=== PATIENT | male | born 1955 | race Hispanic/Latino ===

== ENCOUNTER 2017-04-09 10:10 | Inpatient (IN) | payer MEDICAID ==
[2017-04-09 10:10] VITALS: BMI 28.2
[2017-04-09] MEDS ORDERED: TDAP Vaccine 0.5 mL Syr IM ONE (10:27)
[2017-04-09] MEDS ORDERED: Lidocaine 1% Inj (20ml) ONE (10:54)
[2017-04-09 11:18] LABS: BASO % 0.5 % (0.0-2.0); EOS % 0.3 % (0.0-4.0); HEMATOCRIT 44.1 % (35.0-51.0); LYMPH # 0.8 K/uL (1.0-4.3); MEAN CELL VOLUME 95.4 fl (80.0-94.0); MEAN CORPUSCULAR HEMOGLOBIN 31.8 pg (27.0-31.0); MEAN CORPUSCULAR HGB CONC 33.3 g/dL (33.0-37.0); MEAN PLATELET VOLUME 7.7 fl (7.2-11.7); MONO # 0.5 K/uL (0.0-0.8); MONO % 6.7 % (0.0-10.0); NEUT # 6.3 K/uL (1.8-7.0); NEUT % 82.5 % (50.0-75.0); WHITE BLOOD COUNT 7.6 K/uL (4.8-10.8)
[2017-04-09] MEDS ORDERED: Multivitamin (MVI) 10 ML, Thiamine 100 MG, Folic Acid 1 MG in Sodium Chloride 0.9% 1,00... IV ONE (11:18)
[2017-04-09 11:24] LABS: ALB/GLOB RATIO 1.1 (1.0-2.1); ALCOHOL SERUM 20 mg/dl (0-10); ALKALINE PHOSPHATASE 89 U/L (38-126); ALT/SGPT 40 U/L (21-72); AST/SGOT 68 U/L (17-59); BILIRUBIN,TOTAL 0.9 mg/dl (0.2-1.3); BLOOD UREA NITROGEN 6 mg/dl (9-20); CALCIUM 9.3 mg/dL (8.4-10.2); CARBON DIOXIDE 24 mmol/L (22-30); CHLORIDE 102 mmol/L (98-107); GFR AFRICAN-AMERICAN > 60; GLUCOSE,RANDOM 95 mg/dL (75-110); SODIUM 138 mmol/l (132-148); TOTAL PROTEIN 8.6 G/DL (6.3-8.2)
[2017-04-09 11:31] LABS: PARTIAL THROMBOPLASTIN TIME 28.7 SECONDS (23.3-32.5)
--- NOTE | 2017-04-09 11:33 | ED PDOC ---
HPI: Head Injury Time Seen by Provider: 04/09/17 10:16 Chief Complaint (Nursing): Trauma Chief Complaint (Provider): Head injury History Per: Patient History/Exam Limitations: no limitations Injury Occurred (Timing): Just Before Arrival Onset/Duration Of Symptoms: Mins Patient States: Fell Striking Head Severity: Moderate Loss Of Consciousness: Yes Additional History Per: Patient Additional Complaint(s): The pt is a 61yo male, brought to the ED, C-collar in place, by EMS for evaluation s/p falling and striking his head. Pt reports he was standing along a fence when he felt dizzy and fell over, reports loss of consciousness but is unsure of duration. Reports he drinks everyday and states he goes into DT's if he does not drink - reports he had a drink last night and is going for detox tomorrow. Pt denies any headache, neck pain, chest pain, vomiting and offers no active complaints. Past Medical History Reviewed: Historical Data, Nursing Documentation, Vital Signs Vital Signs: Last Vital Signs Temp 98.4 F 04/09/17 10:16 Pulse 103 H 04/09/17 10:16 Resp 18 04/09/17 10:16 BP 150/96 H 04/09/17 10:16 Pulse Ox 97 04/09/17 10:16 - Medical History PMH: Arthritis, Back Problems, Cardia Arrhythmia, Depression, Deep Vein Thrombosis, Fractures, Gastritis, Gastrointestinal Ulcer, HTN, Hypercholesterolemia Denies: Diabetes, Hepatitis, HIV, Chronic Kidney Disease, Seizures, Sexually Transmitted Disease - Surgical History Surgical History: Appendectomy - Family History Family History: States: Unknown Family Hx, CAD - Immunization History Hx Tetanus Toxoid Vaccination: No Hx Influenza Vaccination: No Hx Pneumococcal Vaccination: No - Home Medications Home Medications: Ambulatory Orders Medication Instructions Recorded Multivitamins [Hexavitamin] 1 tab PO DAILY #30 tab 03/29/17 Pantoprazole [Protonix EC Tab] 40 mg PO DAILY #30 ect 03/29/17 QUEtiapine [Seroquel] 100 mg PO HS #30 tab 03/29/17 traZODone [Desyrel] 100 mg PO HS PRN #30 tab 03/29/17 - Allergies Allergies/Adverse Reactions: Allergies Allergy/AdvReac Type Severity Reaction Status Date / Time No Known Allergies Allergy Verified 04/09/17 16:31 Review of Systems ROS Statement: Except As Marked, All Systems Reviewed And Found Negative Cardiovascular: Negative for: Chest Pain Gastrointestinal: Negative for: Nausea, Vomiting Neurological: Positive for: Other (Loss of consciousness, head injury). Negative for: Headache Physical Exam - Reviewed Nursing Documentation Reviewed: Yes Vital Signs Reviewed: Yes - Physical Exam Appears: Positive for: Well, Non-toxic, No Acute Distress Head Exam: Positive for: NORMAL INSPECTION, NORMOCEPHALIC. Negative for: ATRAUMATIC (hematoma on forehead with superficial abrasion) Skin: Positive for: Normal Color Eye Exam: Positive for: Normal appearance ENT: Negative for: Other (2cm U-shaped laceration on nasal bridge, active bleeding noted.) Neck: Positive for: Normal (c-collar in place) Cardiovascular/Chest: Positive for: Regular Rate, Rhythm, Tachycardia Respiratory: Positive for: Normal Breath Sounds. Negative for: Respiratory Distress Gastrointestinal/Abdominal: Positive for: Normal Exam, Soft Back: Positive for: Normal Inspection Extremity: Positive for: Normal ROM (moving all extremeties, sensations intact) Neurologic/Psych: Positive for: Alert, Oriented - Laboratory Results Result Diagrams: 04/09/17 11:05 04/09/17 11:05 - ECG Interpretation Of ECG: ST @ 107. no ST-T changes. O2 Sat by Pulse Oximetry: 97 (RA) Pulse Ox Interpretation: Normal - Radiology X-Ray: Read By Radiologist X-Ray Interpretation: No Acute Disease - CT Scan/US CT head Other Rad Studies (CT/US): Radiology Report Reviewed (No intracranial hemorrhage.) CT facial bones Other Rad Studies (CT/US): Radiology Report Reviewed (Minimally displaced nasal bone fracture.) CT C-spine Other Rad Studies (CT/US): Radiology Report Reviewed (No acute fracture.) - Critical Care Total Time (In Min): 30 Medical Decision Making Medical Decision Making: Time: 1040 Impression: Head injury, alcohol intoxication Plan: * CT C-Spine * CT Head * CT Maxillofacial * CXR * IV Fluids * Ativan * Tetanus booster * Clindamycin * Banana bag * Reassess Scribe Attestation: Documented by Anaid Elaine acting as a scribe for Geraldine Block MD. Provider Attestation: All medical record entries made by the Scribe were at my direction and personally dictated by me. I have reviewed the chart and agree that the record accurately reflects my personal performance of the history, physical exam, medical decision making, and the department course for this patient. I have also personally directed, reviewed, and agree with the discharge instructions and disposition. Procedures - Time-Out Type of Procedure: Laceration repair Correct Patient (with visual ID + MR# on ID Band): Yes Correct Procedure: Yes Correct Site Marked: Yes Physician Name: Geraldine Block - Laceration/Wound Repair Nose bridge Wound Length (cm): 2 Wound's Depth, Shape: superficial, irregular (u-shaped) Wound Explored: clean Betadine Prep?: Yes Anesthesia: 1% Lidocaine Volume Anesthetic (ccs): 2 Wound Repaired With: Sutures Suture Size/Type: 6:0, proline Number of Sutures: 5 Wound Complexity: Simple Sterile Dressing Applied?: Yes Progress: Tolerated procedure well. Disposition - Clinical Impression Clinical Impression: Syncope, Alcohol withdrawal, Open nasal fracture - Patient ED Disposition Is Patient to be Admitted: Yes - Disposition Disposition Time: 16:11 Condition: STABLE - Pt Status Changed To: Hospital Disposition Of: Inpatient - Admit Certification Admit to Inpatient:: After my assessment, the patient will require hospitalization for at least two midnights. This is because of the severity of symptoms shown, intensity of services needed, and/or the medical risk in this patient being treated as an outpatient. - POA Present On Arrival: Falls Or Trauma
[2017-04-09 13:34] LABS: RBC URINE 3 /hpf (0-3); URINE BACTERIA MOD (<OCC); URINE BILIRUBIN NEGATIVE (NEGATIVE); URINE BLOOD NEGATIVE (NEGATIVE); URINE COLOR YELLOW (YELLOW); URINE GLUCOSE (UA) NEG (Normal); URINE KETONE TRACE mg/dL (NEGATIVE); URINE LEUKOCYTE ESTERASE NEG Leu/uL (Negative); URINE PROTEIN 30 mg/dL (NEGATIVE); URINE UROBILINOGEN 0.2-1.0 mg/dL (0.2-1.0); WBC URINE 2 /hpf (0-5)
--- NOTE | 2017-04-09 14:29 | CT ---
PROCEDURE: CT HEAD WITHOUT CONTRAST. HISTORY: Syncope, head injury COMPARISON: None available. TECHNIQUE: Axial computed tomography images were obtained through the head/brain without intravenous contrast. Radiation dose: Total exam DLP = 866 mGy-cm. This CT exam was performed using one or more of the following dose reduction techniques: Automated exposure control, adjustment of the mA and/or kV according to patient size, and/or use of iterative reconstruction technique. FINDINGS: HEMORRHAGE: No intracranial hemorrhage. BRAIN: No mass effect or edema. No atrophy or chronic microvascular ischemic changes. VENTRICLES: Unremarkable. No hydrocephalus. CALVARIUM: Unremarkable. PARANASAL SINUSES: Unremarkable as visualized. No significant inflammatory changes. MASTOID AIR CELLS: Unremarkable as visualized. No inflammatory changes. OTHER FINDINGS: No left frontal soft tissue hematoma. Ne. IMPRESSION: No intracranial hemorrhage.
--- NOTE | 2017-04-09 15:39 | CT ---
PROCEDURE: CT MAXILLOFACIAL BONES WITHOUT CONTRAST HISTORY: Head injury, syncope COMPARISON: None TECHNIQUE: Contiguous axial CT images of the maxillofacial bones were obtained. Coronal and sagittal reformats were generated. Radiation dose: Total exam DLP = 785 mGy-cm. This CT exam was performed using one or more of the following dose reduction techniques: Automated exposure control, adjustment of the mA and/or kV according to patient size, and/or use of iterative reconstruction technique. FINDINGS: NASAL BONES: Minimally displaced nasal bone fracture. ORBITS: Unremarkable. PARANASAL SINUSES/ MASTOIDS: Clear. MAXILLA: Unremarkable. MANDIBLE/ TEMPOROMANDIBULAR JOINTS: Unremarkable. SKULL BASE: Unremarkable. TEMPORAL BONES: Middle ears and mastoid grossly unremarkable. OTHER FINDINGS: None. IMPRESSION: Minimally displaced nasal bone fracture.
--- NOTE | 2017-04-09 15:41 | CT ---
PROCEDURE: CT Cervical Spine without contrast HISTORY: <Syncope, head injury> COMPARISON: None available. TECHNIQUE: Axial computed tomography images were obtained of the cervical spine without the use of intravenous contrast. Coronal and sagittal reformatted images were created and reviewed. Radiation dose: Total exam DLP = 486 mGy-cm. This CT exam was performed using one or more of the following dose reduction techniques: Automated exposure control, adjustment of the mA and/or kV according to patient size, and/or use of iterative reconstruction technique. FINDINGS: VERTEBRAE: No fracture. Normal alignment. No destructive bony lesion. DISCS/SPINAL CANAL/NEURAL FORAMINA: Multilevel disc space narrowing and anterior spondylosis. Discs heights are grossly preserved. PARASPINAL SOFT TISSUES: Unremarkable. OTHER FINDINGS: None. IMPRESSION: No acute fracture.
[2017-04-09] MEDS ORDERED: Clindamycin 600 MG in Sodium Chloride 0.9% 100 ML IVPB STA (15:59)
[2017-04-09] MEDS ORDERED: Sodium Chloride 0.9% 1,000 ML IV STA (16:07)
--- NOTE | 2017-04-09 16:14 | RAD ---
HISTORY: Syncope COMPARISON: No prior. FINDINGS: LUNGS: No active pulmonary disease. PLEURA: No significant pleural effusion identified, no pneumothorax apparent. CARDIOVASCULAR: Normal. OSSEOUS STRUCTURES: No significant abnormalities. VISUALIZED UPPER ABDOMEN: Normal. OTHER FINDINGS: Right Port-A-Cath in place. IMPRESSION: No active disease.
--- NOTE | 2017-04-09 18:48 | CP.PCM.HP ---
History of Present Illness - History of Present Illness History of Present Illness: Hospitalist Admission H&P (Patient was seen at 4:30 PM 04/09/17 ER Bed #8) PMD: None CODE STATUS: FULL CODE. States that he has filled a Living Will upon prior admission at [facility] but can not recall what is in it. He has designated his Sister Jeana Abarca [phone] as his Health Care Proxy CHIEF COMPLAINT: Fall 61 year old male (PMHx Alcoholism, Depression, DVT, Gastrititis, GI Ulcer, HTN, Right Shoulder Fracture) who presents via EMS status post fall. Patient states that he drank the night before on 04/08/17 but his friend with whom he lives with on [address] in [place], drank the last 2 beers. So when he woke up this morning he decided to walk to the nearest liquor store but after he made it down the steps of his residence he became lightheaded/dizzy, so he decided to sit on the brownlee of a car parked on the street in front of his residence. He does not know how long he was sitting there. He does not remember falling from the brownlee of the car but his friend witnessed it and called EMS. The next thing the patient remembers is lying on the street with EMS personal putting him in a stretcher. He did not lose bowel/bladder continence and can provide any more information than what I have just presented. Please note the remainder of this patient's history was obtained through review of prior records as patient could not provide adequate history. Currently upon FULL ROS there is NO chest pain, (+) Palpitations earlier today, NO SOB/Cough/Wheezing, NO dysphagia/odynophagia, NO abdominal pain, NO n/v/d/c, NO Burning/Pain with urination, NO lightheadedness/dizziness while laying in hospital bed but when he got up earlier in the ER to go to the bathroom he felt some (+) lightheadedness/dizziness, (+) Frontal headache, NO new changes in vision/eye pain, NO new changes in hearing/ear pain, NO paresthesias, NO edema PMHx: Alcoholism, Depression, DVT, Gastritis, GI Ulcer, HTN, Right Shoulder Fracture PSHx: Bilateral Toe #1 and #2 Amputation (could not give reason why), Left Shoulder Replacement, Appendectomy, Unspecified Gastric Surgery for unspecified reason ALL: NKDA and NO known food allergies Medications: Pantoprazole 40 mg PO 1x/day, Clonidine 0.1 mg PO 1x/day (please note that patient stated that he does not take these consistently) Social Hx: 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, 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, 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), Currently living with a friend on [address] in [place], (+) Alcohol 12 24 ounce cans of beer everyday, NO toabacco, NO illicit drugs Family Hx: Mom ( during Cardiac Bypass Surgery), Dad ( of CAD), Sister ( Unknown history) Present on Admission - Present on Admission Any Indicators Present on Admission: Yes History of DVT/PE: Yes History of Uncontrolled Diabetes: No Urinary Catheter: No Review of Systems - Review of Systems Review of Systems: See HPI Past Patient History - Infectious Disease Hx of Infectious Diseases: None - Past Medical History & Family History Past Medical History?: Yes Pertinent Family History: See HPI - Past Social History Smoking Status: Never Smoked - CARDIAC Hx Cardia Arrhythmia: Yes Hx Hypercholesterolemia: Yes Hx Hypertension: Yes - PULMONARY Hx Respiratory Disorders: No - NEUROLOGICAL Hx Seizures: No - HEENT Hx HEENT Problems: No - RENAL Hx Chronic Kidney Disease: No - ENDOCRINE/METABOLIC Hx Endocrine Disorders: No - HEMATOLOGICAL/ONCOLOGICAL Hx Human Immunodeficiency Virus (HIV): No - INTEGUMENTARY Hx Dermatological Problems: No - MUSCULOSKELETAL/RHEUMATOLOGICAL Hx Arthritis: Yes Hx Fractures: Yes - GASTROINTESTINAL Hx Gastritis: Yes - GENITOURINARY/GYNECOLOGICAL Hx Sexually Transmitted Disorders: No - PSYCHIATRIC Hx Depression: Yes - SURGICAL HISTORY Hx Appendectomy: Yes - ANESTHESIA Hx Anesthesia: Yes Hx Anesthesia Reactions: No Hx Malignant Hyperthermia: No Meds Allergies/Adverse Reactions: Allergies Allergy/AdvReac Type Severity Reaction Status Date / Time No Known Allergies Allergy Verified 04/09/17 16:31 Physical Exam - Constitutional Appears: Non-toxic Additional comments: Patient is awake, alert, and oriented x 3 However he is tremulous in his hands Not a very good historian as when asking how he came to be here, he started to tell me about he came to be admitted to [facility] last year and hard to get information concerning his medical/surgical history - Head Exam Additional comments: On mid frontal forehead there is a huge abrasion that also involves the right side of the bridge of the nose (that has 4 sutures) - Eye Exam Eye Exam: EOMI, Normal appearance Additional comments: PERRLA EOMI - ENT Exam ENT Exam: Mucous Membranes Moist, Normal External Ear Exam, Normal Oropharynx - Neck Exam Additional comments: NO cervical/supraclavicular/submandibular lymphadenopathy NO thyromegaly - Respiratory Exam Respiratory Exam: Clear to Auscultation Bilateral, NORMAL BREATHING PATTERN Additional comments: NO R/R/W CTA B/L - Cardiovascular Exam Additional comments: NS1 and NS2 NO M/R/G - GI/Abdominal Exam Additional comments: BSx4, Soft, NT, ND, NO HSM, NO guarding/rebound tenderness, Midabdominal/ periumbilical Surgical Scar - Extremities Exam Additional comments: NO edema Pulses are strong and equal Capillary Refill is 2 seconds Multiple small abrasions on the posterior aspect of the fingers bilaterally as well as the bilateral knees NO tenderness to palpation of the bilateral shoulders, elbows, hips, feet, ankles "Lye Merino" that are lua in color on the DIP pads of the Fingers #2 through #5 of the Right Hand (present for many years) [place] Deformity of the Left Hand Finger #5 (present for many years) - Neurological Exam Neurological exam: Alert, CN II-XII Intact, Oriented x3 Results - Vital Signs Recent Vital Signs: Last Vital Signs Temp 98.8 F 04/09/17 16:00 Pulse 112 H 04/09/17 16:00 Resp 19 04/09/17 16:00 BP 156/98 H 04/09/17 16:00 Pulse Ox 97 04/09/17 18:04 - Labs Result Diagrams: 04/09/17 11:05 04/09/17 11:05 - EKG Data EKG Interpreted by: Myself (Sinus Tachycardia at 107) - Imaging and Cardiology Chest x-ray Status: Report reviewed by me Assessment & Plan (1) Alcohol withdrawal Assessment and Plan: Patient received 1 Banana Bag in the ER Librium 50 mg PO Q8H 04/09/17 Librium 25 mg PO Q6H 04/10/17 Librium 25 mg PO Q8H 04/11/17 Librium 25 mg PO Q12H 04/12/17 Librium 25 mg PO 1x/day 04/13/17 Ativan 1 mg IV Q6H PRN Agitations/Signs of Withdrawl Thiamine 100 mg PO 1x/day Folic Acid 1 mg PO 1x/day MVI 1 tablet by mouth 1x/day Patient states that was scheduled to be admitted to [facility] for Alcohol Detoxification on 04/10/17 at 8 AM Status: Acute (2) Fall Assessment and Plan: This is likely related to Alcohol Withdrawl considering patient's history of Alcohol Abuse. CT Head showed NO mass effect/edema, NO hemorrhage, NO atrophy, NO microvascular changes CT Spine Cervical showed NO acute fracture CT Maxillofacial showed minimally displaced nasal bone fracture F/U STAT X Rays of the bilateral hands, wrists, and knees. Bacitracin Topical TID 3x/day to the abrasions on the frontal forehead, right nasal bridge, bilateral hand posterior fingers, bilateral anterior knees 4 sutures placed by ER on the right nasal bridge abrasion Patient received Clindamycin 600 mg IV x 1 dose in the ER as well as TDAP Status: Acute (3) Urinary tract infection Assessment and Plan: UA shows Moderate Bacteria and (+) Ketones F/U STAT Urine Culture Status: Suspected (4) HTN (hypertension) Assessment and Plan: Holding the Clonidine 0.1 mg which the patient states he will take if he feels his heart beating fast. Lisinopril 10 mg PO 1x/day was started as he was on this while at [facility] admission in May 2016. Status: Chronic (5) Prophylactic measure Assessment and Plan: Heparin 5,000 Units SC Q8H Protonix 40 mg PO 1x/day [facility] Decaf 2 gm Na Diet F/U Labs 04/10/17: CMP, CBC with diff, Vitamin B12, Folate, TSH, T4 Status: Acute
[2017-04-09] MEDS: Pantoprazole 40 mg EC Tab PO SCH (22:05)
[2017-04-10 06:47] LABS: BASO % 0.7 % (0.0-2.0); HEMATOCRIT 37.9 % (35.0-51.0); LYMPH # 1.1 K/uL (1.0-4.3); LYMPH % 29.7 % (20.0-40.0); MEAN CELL VOLUME 95.8 fl (80.0-94.0); MEAN CORPUSCULAR HEMOGLOBIN 32.2 pg (27.0-31.0); MEAN CORPUSCULAR HGB CONC 33.6 g/dL (33.0-37.0); MEAN PLATELET VOLUME 8.3 fl (7.2-11.7); MONO # 0.5 K/uL (0.0-0.8); NEUT # 2.2 K/uL (1.8-7.0); NEUT % 56.6 % (50.0-75.0); NRBC % 0.2 % (0.0-0.0); RED CELL DISTRIBUTION WIDTH 13.7 % (11.5-14.5); WHITE BLOOD COUNT 3.9 K/uL (4.8-10.8)
[2017-04-10 07:00] LABS: ALB/GLOB RATIO 1.1 (1.0-2.1); ALKALINE PHOSPHATASE 71 U/L (38-126); ALT/SGPT 32 U/L (21-72); AST/SGOT 45 U/L (17-59); BILIRUBIN,TOTAL 1.6 mg/dl (0.2-1.3); BLOOD UREA NITROGEN 8 mg/dl (9-20); CALCIUM 8.6 mg/dL (8.4-10.2); CARBON DIOXIDE 25 mmol/L (22-30); CHLORIDE 103 mmol/L (98-107); GFR AFRICAN-AMERICAN > 60; GLUCOSE,RANDOM 90 mg/dL (75-110); POTASSIUM 3.8 MMOL/L (3.6-5.0); SODIUM 137 mmol/l (132-148); TOTAL PROTEIN 6.9 G/DL (6.3-8.2)
[2017-04-10 07:24] LABS: THYROID STIMULATING HORMONE 1.89 mIU/ML (0.46-4.68)
--- NOTE | 2017-04-10 08:48 | CARD ---
APPROVED REPORT EKG Measurement Heart [id number] CT [id number] <Conclusion> Sinus tachycardia Otherwise normal ECG
[2017-04-10] MEDS: Pantoprazole 40 mg EC Tab PO SCH (09:07)
[2017-04-10] MEDS: Multivitamin With Minerals Tab PO SCH (09:07)
[2017-04-10] MEDS: Bacitracin 500 Units/gm Oint Foilpak UD TOP SCH ×3 (09:07→16:25)
[2017-04-10 13:33] LABS: FOLATE 11.9 ng/mL
[2017-04-10] MEDS ORDERED: Multivitamin (MVI) 10 ML, Thiamine 100 MG, Folic Acid 1 MG in Sodium Chloride 0.9% 1,00... IV ONE (14:37)
--- NOTE | 2017-04-10 14:38 | CP.PCM.PN ---
Subjective - Date & Time of Evaluation Date of Evaluation: 04/10/17 Time of Evaluation: 14:20 - Subjective Subjective: Hospitalist Progress Note (Patient was seen and examined at 2:20 PM 04/10/17 [id number]) 61 year old male who was admitted on 04/09/17 S/P fall and Alcohol Withdrawl. ROS Episode of diarrhea Currently upon FULL ROS there is NO chest pain, NO palpitations, NO SOB/Cough/ Wheezing, NO dysphagia/odynophagia, NO abdominal pain, NO n/v/c, NO Burning/ Pain with urination, NO lightheadedness/dizziness today, (+) Frontal headache, NO new changes in vision/eye pain, NO new changes in hearing/ear pain, NO paresthesias, NO edema Physical Exam - Constitutional Appears: Non-toxic Additional comments: Patient is awake, alert, and oriented x 3 However he is tremulous in his hands Not a very good historian as when asking how he came to be here, he started to tell me about he came to be admitted to [facility] last year and hard to get information concerning his medical/surgical history - Head Exam Additional comments: On mid frontal forehead there is a huge abrasion that also involves the right side of the bridge of the nose (that has 4 sutures) - Eye Exam Eye Exam: EOMI, Normal appearance Additional comments: PERRLA EOMI - ENT Exam ENT Exam: Mucous Membranes Moist, Normal External Ear Exam, Normal Oropharynx - Neck Exam Additional comments: NO cervical/supraclavicular/submandibular lymphadenopathy NO thyromegaly - Respiratory Exam Respiratory Exam: Clear to Auscultation Bilateral, NORMAL BREATHING PATTERN Additional comments: NO R/R/W CTA B/L - Cardiovascular Exam Additional comments: NS1 and NS2 NO M/R/G - GI/Abdominal Exam Additional comments: BSx4, Soft, NT, ND, NO HSM, NO guarding/rebound tenderness, Midabdominal/ periumbilical Surgical Scar - Extremities Exam Additional comments: NO edema Pulses are strong and equal Capillary Refill is 2 seconds Multiple small abrasions on the posterior aspect of the fingers bilaterally as well as the bilateral knees NO tenderness to palpation of the bilateral shoulders, elbows, hips, feet, ankles "Lye Merino" that are lua in color on the DIP pads of the Fingers #2 through #5 of the Right Hand (present for many years) [place] Deformity of the Left Hand Finger #5 (present for many years) Bilateral Great Toe and partial 2nd Toe Amputations - Neurological Exam Neurological exam: Alert, CN II-XII Intact, Oriented x3 Assessment & Plan (1) Alcohol withdrawal Assessment and Plan: Patient still tremulous and unsteady on feet, but the tremulousness has improved Librium 50 mg PO Q8H 04/09/17 Librium 25 mg PO Q6H 04/10/17 Librium 25 mg PO Q8H 04/11/17 Librium 25 mg PO Q12H 04/12/17 Librium 25 mg PO 1x/day 04/13/17 Ativan 1 mg IV Q6H PRN Agitations/Signs of Withdrawl Thiamine 100 mg PO 1x/day Folic Acid 1 mg PO 1x/day MVI 1 tablet by mouth 1x/day Banana Bag x 1 ordered for 04/10/17 Patient states that was scheduled to be admitted to [facility] for Alcohol Detoxification on 04/10/17 at 8 AM Status: Acute (2) Fall Assessment and Plan: This is likely related to Alcohol Withdrawl considering patient's history of Alcohol Abuse. F/U PT evaluation and treatment that was ordered 04/10/17: patient states that he was told in the past ([facility] admission) to use a walker but states that he does not use one. CT Head showed NO mass effect/edema, NO hemorrhage, NO atrophy, NO microvascular changes CT Spine Cervical showed NO acute fracture CT Maxillofacial showed minimally displaced nasal bone fracture Bilateral Knee X Rays shows mild tricompartmental osteoarthritis, NO fracture Bilateral Wrist X Rays shows NO acute findings Bilateral Hands shows degenerative changes at the 1st carpometacarpal joint Bacitracin Topical TID 3x/day to the abrasions on the frontal forehead, right nasal bridge, bilateral hand posterior fingers, bilateral anterior knees 4 sutures placed by ER on the right nasal bridge abrasion Patient received Clindamycin 600 mg IV x 1 dose in the ER as well as TDAP Status: Acute (3) Urinary tract infection Assessment and Plan: UA shows Moderate Bacteria and (+) Ketones F/U STAT Urine Culture that was ordered 04/09/17 at the time of admission Status: Suspected (4) HTN (hypertension) Assessment and Plan: Holding the Clonidine 0.1 mg which the patient states he will take if he feels his heart beating fast. Lisinopril 10 mg PO 1x/day was started as he was on this while at [facility] admission in May 2016. Blood pressure is controlled on the Lisinopril Status: Chronic (5) Prophylactic measure Assessment and Plan: Heparin 5,000 Units SC Q8H Protonix 40 mg PO 1x/day Heart Health Decaf 2 gm Na Diet Objective - Vital Signs/Intake and Output Vital Signs (last 24 hours): Temp Pulse Resp BP Pulse Ox 98 F 94 H 18 121/73 97 04/10/17 12:08 04/10/17 12:08 04/10/17 12:08 04/10/17 12:08 04/10/17 12:08 - Medications Medications: Current Medications Bacitracin (Bacitracin) 1 ea TOP TID [facility] Last Admin: 04/10/17 13:18 Dose: 1 ea Chlordiazepoxide (Librium) 25 mg PO 0200,0800,1400,2000 [facility] Last Admin: 04/10/17 13:18 Dose: 25 mg Chlordiazepoxide (Librium) 25 mg PO Q8H [facility] Stop: 04/12/17 08:00 Chlordiazepoxide (Librium) 25 mg PO Q12H [facility] Stop: 04/13/17 08:00 Chlordiazepoxide (Librium) 25 mg PO ONCE ONE Stop: 04/13/17 20:01 Folic Acid (Folic Acid) 1 mg PO DAILY [facility] Last Admin: 04/10/17 09:07 Dose: 1 mg Heparin Sodium (Porcine) (Heparin) 5,000 units SC Q8 [facility] PRN Reason: Protocol Last Admin: 04/10/17 09:07 Dose: 5,000 units Lisinopril (Zestril) 10 mg PO DAILY [facility] Last Admin: 04/10/17 09:08 Dose: 10 mg Lorazepam (Ativan) 1 mg IVP Q6 PRN PRN Reason: Symptoms of alcohol withdrawl Multivitamins/Minerals (Therapeutic-M Tab) 1 tab PO DAILY [facility] Last Admin: 04/10/17 09:07 Dose: 1 tab Pantoprazole Sodium (Protonix Ec Tab) 40 mg PO DAILY [facility] Last Admin: 04/10/17 09:07 Dose: 40 mg Thiamine HCl (Vitamin B1 Tab) 100 mg PO DAILY [facility] Last Admin: 04/10/17 09:08 Dose: 100 mg - Labs Labs: 04/10/17 05:10 04/10/17 05:10 PT 12.6 SECONDS (9.6-11.2) H 04/09/17 11:05 INR 1.21 (0.92-1.08) H 04/09/17 11:05 APTT 28.7 SECONDS (23.3-32.5) 04/09/17 11:05 Assessment and Plan (1) Alcohol withdrawal Status: Acute (2) Fall Status: Acute (3) Urinary tract infection Status: Suspected (4) HTN (hypertension) Status: Chronic (5) Prophylactic measure Status: Acute
--- NOTE | 2017-04-10 16:30 | RAD ---
PROCEDURE: Bilateral Wrists Radiographs. HISTORY: S/P Fall COMPARISON: None. FINDINGS: BONES: Right Carpal Bones: Normal. No fracture or degenerative changes. Left Carpal Bones: Normal. No fracture or degenerative changes. Right Distal Radius and Ulna: No fracture or degenerative changes. Left Distal Radius and Ulna: No fracture or degenerative changes. JOINT SPACES: Right Wrist: Normal. No degenerative changes. Left Wrist: Normal. No degenerative changes. SOFT TISSUES: Right Wrist: Normal. Left Wrist: Normal. OTHER FINDINGS: None. IMPRESSION: No acute findings related to/accounting for the clinical presentation.
--- NOTE | 2017-04-10 16:31 | RAD ---
HISTORY: S/P Fall COMPARISON: No prior FINDINGS: BONES: Normal. No fracture. JOINTS: Degenerative changes at the 1st carpometacarpal joint bilaterally. SOFT TISSUE: Normal. OTHER FINDINGS: None . IMPRESSION: Degenerative changes at the 1st carpometacarpal joint bilaterally.
--- NOTE | 2017-04-10 16:36 | RAD ---
HISTORY: S/P Fall COMPARISON: No prior FINDINGS: BONES: Normal. No fracture. Osteopenia. JOINTS: Tricompartmental osteoarthritis with marginal spur formation. SOFT TISSUE: Normal. OTHER FINDINGS: None . IMPRESSION: Mild tricompartmental osteoarthritis. No acute fracture.
[2017-04-11 07:15] LABS: BASO % 0.6 % (0.0-2.0); EOS # 0.1 K/uL (0.0-0.7); EOS % 1.8 % (0.0-4.0); HEMATOCRIT 36.7 % (35.0-51.0); LYMPH % 30.3 % (20.0-40.0); MEAN CELL VOLUME 95.2 fl (80.0-94.0); MEAN CORPUSCULAR HGB CONC 33.6 g/dL (33.0-37.0); MEAN PLATELET VOLUME 8.4 fl (7.2-11.7); MONO # 0.4 K/uL (0.0-0.8); MONO % 11.7 % (0.0-10.0); NEUT # 1.8 K/uL (1.8-7.0); NEUT % 55.6 % (50.0-75.0); NRBC % 0.1 % (0.0-0.0); RED CELL DISTRIBUTION WIDTH 13.5 % (11.5-14.5); WHITE BLOOD COUNT 3.2 K/uL (4.8-10.8)
[2017-04-11 07:27] LABS: ALB/GLOB RATIO 1.1 (1.0-2.1); ALKALINE PHOSPHATASE 80 U/L (38-126); ALT/SGPT 35 U/L (21-72); AST/SGOT 45 U/L (17-59); BILIRUBIN,TOTAL 1.1 mg/dl (0.2-1.3); BLOOD UREA NITROGEN 7 mg/dl (9-20); CALCIUM 8.7 mg/dL (8.4-10.2); CARBON DIOXIDE 26 mmol/L (22-30); CHLORIDE 105 mmol/L (98-107); GFR AFRICAN-AMERICAN > 60; GLUCOSE,RANDOM 100 mg/dL (75-110); SODIUM 139 mmol/l (132-148); TOTAL PROTEIN 6.7 G/DL (6.3-8.2)
[2017-04-11] MEDS: Bacitracin 500 Units/gm Oint Foilpak UD TOP SCH ×3 (09:06→16:49)
[2017-04-11] MEDS: Pantoprazole 40 mg EC Tab PO SCH (09:10)
[2017-04-11] MEDS: Multivitamin With Minerals Tab PO SCH (09:11)
--- NOTE | 2017-04-11 14:42 | CP.PCM.PN ---
Subjective - Date & Time of Evaluation Date of Evaluation: 04/11/17 Time of Evaluation: 10:30 - Subjective Subjective: Pt seen and examined. Pt still tremelous but otherwise denied any complaint. Objective - Vital Signs/Intake and Output Vital Signs (last 24 hours): Temp Pulse Resp BP Pulse Ox 97.8 F 85 18 156/88 H 98 04/11/17 12:02 04/11/17 12:02 04/11/17 12:02 04/11/17 12:02 04/11/17 12:02 - Medications Medications: Current Medications Bacitracin (Bacitracin) 1 ea TOP TID COUNT INCLUDES THE [facility] Last Admin: 04/11/17 13:53 Dose: 1 ea Chlordiazepoxide (Librium) 25 mg PO 0200,0800,1400,2000 COUNT INCLUDES THE [facility] Last Admin: 04/11/17 13:53 Dose: 25 mg Chlordiazepoxide (Librium) 25 mg PO Q8H ELDA Stop: 04/12/17 08:00 Chlordiazepoxide (Librium) 25 mg PO Q12H ELDA Stop: 04/13/17 08:00 Chlordiazepoxide (Librium) 25 mg PO ONCE ONE Stop: 04/13/17 20:01 Folic Acid (Folic Acid) 1 mg PO DAILY COUNT INCLUDES [facility] Last Admin: 04/11/17 09:09 Dose: 1 mg Heparin Sodium (Porcine) (Heparin) 5,000 units SC Q8 ELDA PRN Reason: Protocol Last Admin: 04/11/17 09:09 Dose: 5,000 units Lisinopril (Zestril) 10 mg PO DAILY COUNT [facility]CLUDES [facility] Last Admin: 04/11/17 09:12 Dose: 10 mg Lorazepam (Ativan) 1 mg IVP Q6 PRN PRN Reason: Symptoms of alcohol withdrawl Multivitamins/Minerals (Therapeutic-M Tab) 1 tab PO DAILY COUNT INCLUDES [facility] Last Admin: 04/11/17 09:11 Dose: 1 tab Pantoprazole Sodium (Protonix Ec Tab) 40 mg PO DAILY COUNT [facility]CLUDES [facility] Last Admin: 04/11/17 09:10 Dose: 40 mg Thiamine HCl (Vitamin B1 Tab) 100 mg PO DAILY COUNT [facility]CLUDES [facility] Last Admin: 04/11/17 09:10 Dose: 100 mg - Labs Labs: 04/11/17 05:20 04/11/17 05:20 PT 12.6 SECONDS (9.6-11.2) H 04/09/17 11:05 INR 1.21 (0.92-1.08) H 04/09/17 11:05 APTT 28.7 SECONDS (23.3-32.5) 04/09/17 11:05 - Constitutional Appears: No Acute Distress, Other (tremelous) - Head Exam Head Exam: ATRAUMATIC - Eye Exam Eye Exam: absent: Scleral icterus - ENT Exam ENT Exam: Mucous Membranes Moist - Neck Exam Neck Exam: absent: Meningismus - Respiratory Exam Respiratory Exam: absent: Rhonchi, Wheezes, Respiratory Distress - Cardiovascular Exam Cardiovascular Exam: REGULAR RHYTHM, +S1, +S2 - GI/Abdominal Exam GI & Abdominal Exam: Soft. absent: Tenderness - Rectal Exam Rectal Exam: Deferred - Neurological Exam Neurological Exam: Alert, Oriented x3 - Psychiatric Exam Psychiatric exam: Normal Affect - Skin Skin Exam: Dry, Intact Assessment and Plan (1) Alcohol withdrawal Status: Acute (2) Fall Status: Acute (3) Urinary tract infection Status: Suspected (4) HTN (hypertension) Status: Chronic (5) DVT prophylaxis Status: Acute - Assessment and Plan (Free Text) Assessment: 61 yo male with history of Alcoholism, Depression, HTN, DVT and Gastritis admitted because of fall and instability when ambulating. Patient also appeared tremulous. 1. Alcohol Withdrawal Ativan 1mg IV q 6hrs prn for chesr pain continue Librium, Thiamine and Folic Acid 2. Fall secondary to alcohol withdrawal sustained nasal bone fracture 3. UTI ruled out no growth in urine cullture 4. HTN BP uncontrolled secondary to alcohol witdrawal Lisinopril 10mg PO daily 5. DVT prophylaxis Heparin 5000 units SC q 8hrs
[2017-04-12] MEDS: Bacitracin 500 Units/gm Oint Foilpak UD TOP SCH ×3 (09:32→16:48)
[2017-04-12] MEDS: Pantoprazole 40 mg EC Tab PO SCH (09:33)
[2017-04-12] MEDS: Multivitamin With Minerals Tab PO SCH (09:33)
--- NOTE | 2017-04-12 13:27 | CP.PCM.PN ---
Subjective - Date & Time of Evaluation Date of Evaluation: 04/12/17 Time of Evaluation: 10:30 - Subjective Subjective: Pt seen and examined. Hand were still shaking. He also complained of instability when ambulating. Objective - Vital Signs/Intake and Output Vital Signs (last 24 hours): Temp Pulse Resp BP Pulse Ox 98.6 F 86 18 156/83 H 98 04/12/17 12:02 04/12/17 12:02 04/12/17 12:02 04/12/17 12:02 04/12/17 12:02 - Medications Medications: Current Medications Bacitracin (Bacitracin) 1 ea TOP TID [facility] Last Admin: 04/12/17 09:32 Dose: 1 ea Chlordiazepoxide (Librium) 25 mg PO Q12H ELDA Stop: 04/13/17 08:00 Chlordiazepoxide (Librium) 25 mg PO ONCE ONE Stop: 04/13/17 20:01 Chlordiazepoxide (Librium) 25 mg PO Q8@0600,1400,2200 [facility] Last Admin: 04/12/17 06:18 Dose: 25 mg Folic Acid (Folic Acid) 1 mg PO DAILY [facility] Last Admin: 04/12/17 09:33 Dose: 1 mg Heparin Sodium (Porcine) (Heparin) 5,000 units SC Q8 ELDA PRN Reason: Protocol Last Admin: 04/12/17 09:34 Dose: 5,000 units Lisinopril (Zestril) 10 mg PO DAILY [facility] Last Admin: 04/12/17 09:33 Dose: 10 mg Lorazepam (Ativan) 1 mg IVP Q6 PRN PRN Reason: Symptoms of alcohol withdrawl Multivitamins/Minerals (Therapeutic-M Tab) 1 tab PO DAILY [facility] Last Admin: 04/12/17 09:33 Dose: 1 tab Pantoprazole Sodium (Protonix Ec Tab) 40 mg PO DAILY [facility] Last Admin: 04/12/17 09:33 Dose: 40 mg Thiamine HCl (Vitamin B1 Tab) 100 mg PO DAILY [facility] Last Admin: 04/12/17 09:32 Dose: 100 mg - Labs Labs: 04/11/17 05:20 04/11/17 05:20 PT 12.6 SECONDS (9.6-11.2) H 04/09/17 11:05 INR 1.21 (0.92-1.08) H 04/09/17 11:05 APTT 28.7 SECONDS (23.3-32.5) 04/09/17 11:05 - Constitutional Appears: No Acute Distress - Head Exam Head Exam: ATRAUMATIC - Eye Exam Eye Exam: absent: Scleral icterus - ENT Exam ENT Exam: Mucous Membranes Moist - Neck Exam Neck Exam: absent: Meningismus - Respiratory Exam Respiratory Exam: absent: Rhonchi, Wheezes, Respiratory Distress - Cardiovascular Exam Cardiovascular Exam: REGULAR RHYTHM, +S1, +S2 - GI/Abdominal Exam GI & Abdominal Exam: Soft. absent: Tenderness - Rectal Exam Rectal Exam: Deferred - Neurological Exam Neurological Exam: Abnormal Gait (unstable gait), Alert, Oriented x3 - Psychiatric Exam Psychiatric exam: Normal Affect - Skin Skin Exam: Abrasion (multiple healing abrasions on face) Assessment and Plan (1) Alcohol withdrawal Status: Acute (2) Fall Status: Acute (3) Urinary tract infection Status: Ruled-out (4) HTN (hypertension) Status: Chronic (5) DVT prophylaxis Status: Acute - Assessment and Plan (Free Text) Assessment: 61 yo male with history of Alcoholism, Depression, HTN, DVT and Gastritis admitted because of fall and gait instability. Patient was also tremulous. 1. Alcohol Withdrawal extended hands less tremulous on Ativan prn for agitation continue Librium, Thiamine and Folic Acid 2. Fall secondary to gait instability specially when turning as PT sustained nasal bone fracture 3. HTN BP uncontrolled secondary to alcohol witdrawal will increase Lisinopril 20mg PO daily 4. DVT prophylaxis Heparin 5000 units SC q 8hrs
--- NOTE | 2017-04-12 13:31 | CP.PCM.CON ---
History of Present Illness - History of Present Illness History of Present Illness: Psychiatry consult called for evaluation of alcohol abuse and depression Patient is a poor historian, therefore history was obtained from the chart. CC: "Yeah, I'm depressed sometimes, but I would never kill myself." HPI: 61 year old male (PMHx Alcoholism, Depression, DVT, Gastrititis, GI Ulcer, HTN, Right Shoulder Fracture) who presented via EMS status post fall. Patient reports that he drinks "too much", but would not quantify the exact amount. Patient has a known history of severe alcohol abuse. He reports feelings depressed and anxious, but also reports that he does not have any long periods of sobriety. No psychosis/paranoia. Sleep/appetite are disturbed due to chronic ETOH abuse. He is not interested in inpatient psychiatric admission at this time. Sp[facility] Diver discussed starting an antidepressant for his anxiety and depression and he stated that he would consider it. History from the chart: "Patient states that he drank the night before on but his friend with whom he lives with on [address] in [place], drank the last 2 beers. So when he woke up this morning he decided to walk to the nearest liquor store but after he made it down the steps of his residence he became lightheaded/dizzy, so he decided to sit on the brownlee of a car parked on the street in front of his residence. He does not know how long he was sitting there. He does not remember falling from the brownlee of the car but his friend witnessed it and called EMS. The next thing the patient remembers is lying on the street with EMS personal putting him in a stretcher. He did not lose bowel/ bladder continence and can provide any more information than what I have just presented. Please note the remainder of this patient's history was obtained through review of prior records as patient could not provide adequate history." PPHx: H/o multiple alcohol detoxes. H/o tx w/ Paxil and Prozac which he believes were not helpful, but he also was not compliant with medications. 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 Impression: 61 yo male w/ h/o chronic and severe Alcohol Use Disorder, w/ reported symptoms of anxiety and depression, r/o substance induced mood and/or anxiety disorder. -Patient does not need psychiatric admission -Can start Zoloft 50 mg PO Daily if the patient is agreeable; he would benefit from outpatient psychiatric follow-up -Patient has capacity to make medical decisions at this time -Continue to taper Librium as per ETOH withdrawal protocol -Call w/ further questions, Dr. Clark [phone] Past Patient History - Infectious Disease Hx of Infectious Diseases: None - Past Medical History & Family History Past Medical History?: Yes - Past Social History Smoking Status: Never Smoked - CARDIAC Hx Cardia Arrhythmia: Yes Hx Hypercholesterolemia: Yes Hx Hypertension: Yes - PULMONARY Hx Respiratory Disorders: No - NEUROLOGICAL Hx Seizures: No - HEENT Hx HEENT Problems: No - RENAL Hx Chronic Kidney Disease: No - ENDOCRINE/METABOLIC Hx Endocrine Disorders: No - HEMATOLOGICAL/ONCOLOGICAL Hx Human Immunodeficiency Virus (HIV): No - INTEGUMENTARY Hx Dermatological Problems: No - MUSCULOSKELETAL/RHEUMATOLOGICAL Hx Arthritis: Yes Hx Falls: Yes Hx Fractures: Yes - GASTROINTESTINAL Hx Gastritis: Yes - GENITOURINARY/GYNECOLOGICAL Hx Sexually Transmitted Disorders: No - PSYCHIATRIC Hx Depression: Yes Hx Substance Use: No - SURGICAL HISTORY Hx Appendectomy: Yes - ANESTHESIA Hx Anesthesia: Yes Hx Anesthesia Reactions: No Hx Malignant Hyperthermia: No Meds Allergies/Adverse Reactions: Allergies Allergy/AdvReac Type Severity Reaction Status Date / Time No Known Allergies Allergy Verified 04/09/17 16:31 - Medications Medications: Current Medications Bacitracin (Bacitracin) 1 ea TOP TID [facility] Last Admin: 04/12/17 09:32 Dose: 1 ea Chlordiazepoxide (Librium) 25 mg PO Q12H ELDA Stop: 04/13/17 08:00 Chlordiazepoxide (Librium) 25 mg PO ONCE ONE Stop: 04/13/17 20:01 Chlordiazepoxide (Librium) 25 mg PO Q8@0600,1400,2200 [facility] Last Admin: 04/12/17 06:18 Dose: 25 mg Folic Acid (Folic Acid) 1 mg PO DAILY [facility] Last Admin: 04/12/17 09:33 Dose: 1 mg Heparin Sodium (Porcine) (Heparin) 5,000 units SC Q8 [facility] PRN Reason: Protocol Last Admin: 04/12/17 09:34 Dose: 5,000 units Lisinopril (Zestril) 10 mg PO DAILY [facility] Last Admin: 04/12/17 09:33 Dose: 10 mg Lorazepam (Ativan) 1 mg IVP Q6 PRN PRN Reason: Symptoms of alcohol withdrawl Multivitamins/Minerals (Therapeutic-M Tab) 1 tab PO DAILY [facility] Last Admin: 04/12/17 09:33 Dose: 1 tab Pantoprazole Sodium (Protonix Ec Tab) 40 mg PO DAILY [facility] Last Admin: 04/12/17 09:33 Dose: 40 mg Thiamine HCl (Vitamin B1 Tab) 100 mg PO DAILY [facility] Last Admin: 04/12/17 09:32 Dose: 100 mg Results - Vital Signs Recent Vital Signs: Last Vital Signs Temp 98.6 F 04/12/17 12:02 Pulse 86 04/12/17 12:02 Resp 18 04/12/17 12:02 BP 156/83 H 04/12/17 12:02 Pulse Ox 98 04/12/17 12:02 - Labs Result Diagrams: 04/11/17 05:20 04/11/17 05:20
[2017-04-12 15:58] VITALS: RESP 20
--- NOTE | 2017-04-12 16:43 | CP.PCM.DIS ---
Provider - Provider Date of Admission: 04/09/17 16:08 Attending physician: Arturo Ramirez MD Consults: Dr Clark Time Spent in preparation of Discharge (in minutes): 30 Diagnosis - Discharge Diagnosis (1) Alcohol withdrawal Status: Acute Comment: continue tapering dose of Librium. continue Thiamine, Folic Acid. Ativan 1mg IV q 4hrs for agitation (2) Fall Status: Acute Comment: continue physical therapy and OT (3) HTN (hypertension) Status: Chronic Comment: BP elevated. increase dose of Lisinopril to 20mg PO daily (4) DVT prophylaxis Status: Acute Comment: Heparin 5000 units SC q 8hrs Hospital Course - Lab Results Lab Results: Most Recent Lab Values WBC 3.2 K/uL (4.8-10.8) L 04/11/17 05:20 RBC 3.86 Mil/uL (4.40-5.90) L 04/11/17 05:20 Hgb 12.3 g/dL (12.0-18.0) 04/11/17 05:20 Hct 36.7 % (35.0-51.0) 04/11/17 05:20 MCV 95.2 fl (80.0-94.0) H 04/11/17 05:20 MCH 32.0 pg (27.0-31.0) H 04/11/17 05:20 MCHC 33.6 g/dL (33.0-37.0) 04/11/17 05:20 RDW 13.5 % (11.5-14.5) 04/11/17 05:20 Plt Count 121 K/uL (130-400) L 04/11/17 05:20 MPV 8.4 fl (7.2-11.7) 04/11/17 05:20 Neut % (Auto) 55.6 % (50.0-75.0) 04/11/17 05:20 Lymph % (Auto) 30.3 % (20.0-40.0) 04/11/17 05:20 Stephens % (Auto) 11.7 % (0.0-10.0) H 04/11/17 05:20 Eos % (Auto) 1.8 % (0.0-4.0) 04/11/17 05:20 Baso % (Auto) 0.6 % (0.0-2.0) 04/11/17 05:20 Neut # 1.8 K/uL (1.8-7.0) 04/11/17 05:20 Lymph # 1.0 K/uL (1.0-4.3) 04/11/17 05:20 Stephens # 0.4 K/uL (0.0-0.8) 04/11/17 05:20 Eos # 0.1 K/uL (0.0-0.7) 04/11/17 05:20 Baso # 0.0 K/uL (0.0-0.2) 04/11/17 05:20 PT 12.6 SECONDS (9.6-11.2) H 04/09/17 11:05 INR 1.21 (0.92-1.08) H 04/09/17 11:05 APTT 28.7 SECONDS (23.3-32.5) 04/09/17 11:05 Sodium 139 mmol/l (132-148) 04/11/17 05:20 Potassium 4.0 MMOL/L (3.6-5.0) 04/11/17 05:20 Chloride 105 mmol/L (98-107) 04/11/17 05:20 Carbon Dioxide 26 mmol/L (22-30) 04/11/17 05:20 Anion Gap 12 (10-20) 04/11/17 05:20 BUN 7 mg/dl (9-20) L 04/11/17 05:20 Creatinine 0.7 mg/dL (0.8-1.5) L 04/11/17 05:20 Est GFR ( Amer) > 60 04/11/17 05:20 Est GFR (Non-Af Amer) > 60 04/11/17 05:20 POC Glucose (mg/dL) 95 mg/dL (65-110) 04/09/17 10:22 Random Glucose 100 mg/dL (75-110) 04/11/17 05:20 Calcium 8.7 mg/dL (8.4-10.2) 04/11/17 05:20 Total Bilirubin 1.1 mg/dl (0.2-1.3) 04/11/17 05:20 AST 45 U/L (17-59) 04/11/17 05:20 ALT 35 U/L (21-72) 04/11/17 05:20 Alkaline Phosphatase 80 U/L (38-126) 04/11/17 05:20 Troponin I < 0.0120 ng/mL (0.00-0.120) 04/09/17 11:05 Total Protein 6.7 G/DL (6.3-8.2) 04/11/17 05:20 Albumin 3.5 g/dL (3.5-5.0) 04/11/17 05:20 Globulin 3.2 gm/dL (2.2-3.9) 04/11/17 05:20 Albumin/Globulin Ratio 1.1 (1.0-2.1) 04/11/17 05:20 Vitamin B12 502 pg/mL (239-931) 04/10/17 05:10 Folate 11.9 ng/mL 04/10/17 05:10 Thyroxine (T4) 7.16 ug/dl (5.5-11.0) 04/10/17 05:10 TSH 3rd Generation 1.89 mIU/ML (0.46-4.68) 04/10/17 05:10 Urine Color Yellow (YELLOW) 04/09/17 13:25 Urine Clarity Slighty-cloudy (Clear) 04/09/17 13:25 Urine pH 6.0 (5.0-8.0) 04/09/17 13:25 Ur Specific [place] 1.016 (1.003-1.030) 04/09/17 13:25 Urine Protein 30 mg/dL (NEGATIVE) 04/09/17 13:25 Urine Glucose (UA) Neg mg/dL (Normal) 04/09/17 13:25 Urine Ketones Trace mg/dL (NEGATIVE) 04/09/17 13:25 Urine Blood Negative (NEGATIVE) 04/09/17 13:25 Urine Nitrate Negative (NEGATIVE) 04/09/17 13:25 Urine Bilirubin Negative (NEGATIVE) 04/09/17 13:25 Urine Urobilinogen 0.2-1.0 mg/dL (0.2-1.0) 04/09/17 13:25 Ur Leukocyte Esterase Neg [place]/uL (Negative) 04/09/17 13:25 Urine RBC (Auto) 3 /hpf (0-3) 04/09/17 13:25 Urine Microscopic WBC 2 /hpf (0-5) 04/09/17 13:25 Ur Squamous Epith Cells 1 /hpf (0-5) 04/09/17 13:25 Urine Bacteria Mod (<OCC) H 04/09/17 13:25 Hyaline Casts 0-2 /hpf (0-2) 04/09/17 13:25 Urine Opiates Screen Negative (NEGATIVE) 04/09/17 13:25 Urine Methadone Screen Negative (NEGATIVE) 04/09/17 13:25 Ur Barbiturates Screen Negative (NEGATIVE) 04/09/17 13:25 Ur Phencyclidine Scrn Negative (NEGATIVE) 04/09/17 13:25 Ur Amphetamines Screen Negative (NEGATIVE) 04/09/17 13:25 U Benzodiazepines Scrn Negative (NEGATIVE) 04/09/17 13:25 U Oth Cocaine Metabols Negative (NEGATIVE) 04/09/17 13:25 U Cannabinoids Screen Negative (NEGATIVE) 04/09/17 13:25 Alcohol, Quantitative 20 mg/dl (0-10) H 04/09/17 11:05 - Hospital Course Hospital Course: 61 yo male with history of Alcoholism, Depression, HTN, DVT and Gastritis admitted because of fall and gait instability. Pt sustained nasal bone fracture and facial abrasions from the injury. PT saw patient and advised that he would need further therapy in [facility]. He would need also continuation of alcohol detox at the same time in the same place. Patient discharged in stable condition. Discharge Exam - Head Exam Head Exam: ATRAUMATIC - Eye Exam Eye Exam: absent: Scleral icterus - ENT Exam ENT Exam: Mucous Membranes Moist - Respiratory Exam Respiratory Exam: absent: Rhonchi, Wheezes, Respiratory Distress - Cardiovascular Exam Cardiovascular Exam: REGULAR RHYTHM, +S1, +S2 - GI/Abdominal Exam GI & Abdominal Exam: Soft. absent: Tenderness - Rectal Exam Rectal Exam: Deferred - Neurological Exam Neurological exam: Abnormal Gait, Alert, Oriented x3 - Psychiatric Exam Psychiatric exam: Normal Affect - Skin Skin Exam: Dry, Intact Discharge Plan - Follow Up Plan Condition: STABLE Disposition: REHAB FACILITY/REHAB UNIT
[2017-04-12 18:51] VITALS: BP 171/65; PULSE 70; TEMP 97.8; O2SAT 97
== END 2017-04-12 21:05 | DRG 750 ==
LOC: H.ER 10:10 → H.ERHOLD 16:08 → H.TEL 17:19
PROVIDERS: ADMIT Family Medicine; ATTEND Family Medicine
PROC: 09QKXZZ Repair Nasal Mucosa and Soft Tissue, External Approach (ICD-10-PCS; principal; 2017-04-09)
PROC: 3E0234Z Introduction of Serum, Toxoid and Vaccine into Muscle, Percutaneous Approach (ICD-10-PCS; 2017-04-09)
DX: F10.231 Alcohol dependence with withdrawal delirium (principal); S02.2XXB Fracture of nasal bones, initial encounter for open fracture; I10 Essential (primary) hypertension; Y90.1 Blood alcohol level of 20-39 mg/100 ml; Y93.9 Activity, unspecified; Y92.9 Unspecified place or not applicable; W18.00XA Striking against unspecified object with subsequent fall, initial encounter; E78.00 Pure hypercholesterolemia, unspecified; F32.9 Major depressive disorder, single episode, unspecified; Z86.718 Personal history of other venous thrombosis and embolism; K29.70 Gastritis, unspecified, without bleeding; M19.90 Unspecified osteoarthritis, unspecified site; F10.229 Alcohol dependence with intoxication, unspecified; S00.81XA Abrasion of other part of head, initial encounter; Z23 Encounter for immunization; F41.9 Anxiety disorder, unspecified